=== PATIENT | female | born 1955 | race Caucasian/White ===

== ENCOUNTER 2021-01-19 06:43 | Day surgery (SDC) | payer OTHER ==
[2021-01-19] MEDS ORDERED: LIDOCAINE 4% TOP SOLUTION TOP ONE (07:21)
[2021-01-19] MEDS ORDERED: Phenylephrine HCl 10 MG/ML 1 ML VIAL ONE ×2 (07:32→07:56)
[2021-01-19] MEDS ORDERED: Ringers Lactate 1,000 ML IV ONE (07:32)
[2021-01-19] MEDS ORDERED: GLYCOPYRROLATE 0.2 MG/ML SYR ONE (07:32)
[2021-01-19] MEDS ORDERED: LIDOCAINE VISCOUS 2% SOLN 15 ML UDC ONE (07:59)
[2021-01-19] MEDS ORDERED: LIDOCAINE 1% MPF 30 ML VIAL ONE ×2 (07:59→08:11)
[2021-01-19] MEDS ORDERED: propofoL 200 MG/20 ML VIAL IV ONE (08:11)
--- NOTE | 2021-01-19 08:36 | P.OP ---
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
[2021-01-19] MEDS ORDERED: FENTANYL CITR 100 MCG/2 ML IV ONE (08:57)
--- NOTE | 2021-01-19 09:11 | RAD REPORT ---
EXAM DESCRIPTION: RAD - FLUORO-GUIDE FOR BRONCH UPT1HR - 01/19/2021 8:41 am CLINICAL HISTORY: BRONCH COMPARISON: No comparisons FINDINGS: Fluoroscopy time 106 seconds.
[2021-01-19] MEDS ORDERED: FENTANYL CITR 100 MCG/2 ML ONE (09:19)
[2021-01-19 09:48] VITALS: BP 152/89; TEMP 98; O2SAT 93
--- NOTE | 2021-01-19 09:48 | RAD REPORT ---
EXAM DESCRIPTION: RAD - Chest Single View - 01/19/2021 9:43 am CLINICAL HISTORY: post bronch r/o pnuemo Chest pain. COMPARISON: Chest Pa And Lat (2 Views) dated 12/13/2020; FLUORO-GUIDE FOR BRONCH UPT1HR dated 01/20/20 21 FINDINGS: Portable technique limits examination quality. The lungs are emphysematous with linear atelectasis in the right lung base. Small right pleural effus ion. There is no evidence of postprocedure pneumothorax. The heart is mildly prominent. IMPRESSION: No evidence of postprocedure pneumothorax.
== END 2021-01-19 10:10 | disposition home or self-care (01) ==
LOC: OR 06:43
PROVIDERS: ATTEND Internal Medicine Sleep Medicine
PROC: 0B9C8ZX Drainage of Right Upper Lung Lobe, Via Natural or Artificial Opening Endoscopic, Diagnostic (ICD-10-PCS; 2021-01-19)
PROC: 0BD48ZX Extraction of Right Upper Lobe Bronchus, Via Natural or Artificial Opening Endoscopic, Diagnostic (ICD-10-PCS; principal; 2021-01-19 08:00)
DX: C34.11 Malignant neoplasm of upper lobe, right bronchus or lung (principal); J44.9 Chronic obstructive pulmonary disease, unspecified; R04.2 Hemoptysis; Z20.822 Contact with and (suspected) exposure to COVID-19; Z87.891 Personal history of nicotine dependence
CPT/HCPCS: 31625; 31624; 88108; 88305 ×2; 87015; 87206; 87116; 87102; 71045; 76000; U0003; J2704; J2370; J3010 ×2; J7120